=== PATIENT | male | born 1945 | race Caucasian/White ===

== ENCOUNTER 2022-03-21 13:28 | Inpatient (IN) | payer OTHER, MEDICAID ==
[~2022-03-21] VITALS: Ht 170.2 cm; Wt 100.7 kg
[2022-03-21 13:47] VITALS: BP 100/55
[2022-03-21] MEDS ORDERED: FUROSEMIDE 40 MG/4 ML VIAL IVP ONE (15:15)
[2022-03-21 15:25] LABS: BASOPHILS % (AUTO) 0.5 % (0.0-2.0); EOSINOPHILS # (AUTO) 0.2 K/uL (0-0.4); EOSINOPHILS % (AUTO) 5.4 % (0.0-4.0); HEMOGLOBIN 11.1 g/dL (12.0-18.0); LYMPHOCYTES # (AUTO) 0.4 K/uL (2.0-11.5); LYMPHOCYTES % (AUTO) 9.2 % (20.5-51.1); MEAN CORPUSCULAR HEMOGLOBIN 31 pg (27-31); MEAN CORPUSCULAR HGB CONC 34 g/dL (33-37); MEAN CORPUSCULAR VOLUME 91.9 fL (80-94); MONOCYTES # (AUTO) 0.6 K/uL (0.8-1.0); MONOCYTES % (AUTO) 14.8 % (1.7-9.3); NEUTROPHILS # (AUTO) 2.7 K/uL (1.8-7.7); NEUTROPHILS % (AUTO) 70.1 % (42.2-75.2); PLATELET COUNT (AUTO) 126 K/uL (140-450); RED BLOOD CELL COUNT(AUTO) 3.59 MIL/uL (4.20-6.10); RED CELL DISTRIBUTION WIDTH 16.2 % (11.6-13.7); WHITE BLOOD COUNT (AUTO) 3.8 K/uL (4.8-10.8)
[2022-03-21 15:51] LABS: ALBUMIN 2.6 g/dL (3.4-5.0); ANION GAP 17.6 (8-16); ASPARTATE AMINOTRANSFERASE 30 U/L (15-37); CHLORIDE 92 mmol/L (98-107); GLUCOSE 97 mg/dL (74-106); POTASSIUM 4.6 mmol/L (3.5-5.1); SODIUM SERUM 135 mmol/L (136-145); TOTAL BILIRUBIN 0.9 mg/dL (0.0-1.0)
[2022-03-21 15:57] LABS: APPEARANCE,URINE CLEAR (CLEAR); BILIRUBIN,URINE NEGATIVE (NEGATIVE); BLOOD, URINE NEGATIVE (NEGATIVE); COLOR,URINE YELLOW (YELLOW); LEUKOCYTE ESTERASE ,URINE NEGATIVE (NEGATIVE); NITRITE, URINE NEGATIVE (NEGATIVE); PH,URINE 5.5 (5.0-9.0); UGLUCOSE NEGATIVE (NEGATIVE)
[2022-03-21 15:58] LABS: UREA NITROGEN, BLOOD 139 mg/dL (7-18)
[2022-03-21 15:59] LABS: CREATININE 4.4 mg/dL (0.6-1.3)
[2022-03-21] MEDS ORDERED: LORazepam 2 MG/ML VIAL IVP PRN (17:30)
[2022-03-21] MEDS: FUROSEMIDE 40 MG/4 ML VIAL IVP SCH (18:33)
[2022-03-21] MEDS ORDERED: SPIR25TA20 PO (18:37)
[2022-03-21] MEDS ORDERED: [UNRECOGNIZED DRUG - CODE] PO ×2 (18:37)
[2022-03-21] MEDS ORDERED: TAMS0.4C97 PO (18:37)
[2022-03-21] MEDS ORDERED: CARV3.122 PO (18:37)
[2022-03-21] MEDS ORDERED: REN800 PO (18:37)
[2022-03-21 19:45] VITALS: BP 87/65
[2022-03-22] VITALS: BP 84/58
[2022-03-22 04:07] VITALS: BP 86/60
[2022-03-22 07:17] LABS: BASOPHILS % (AUTO) 0.6 % (0.0-2.0); EOSINOPHILS # (AUTO) 0.2 K/uL (0-0.4); EOSINOPHILS % (AUTO) 4.2 % (0.0-4.0); HEMATOCRIT 34.7 % (36-52); HEMOGLOBIN 11.4 g/dL (12.0-18.0); LYMPHOCYTES # (AUTO) 0.4 K/uL (2.0-11.5); LYMPHOCYTES % (AUTO) 9.6 % (20.5-51.1); MEAN CORPUSCULAR HEMOGLOBIN 30 pg (27-31); MEAN CORPUSCULAR HGB CONC 33 g/dL (33-37); MEAN CORPUSCULAR VOLUME 92.3 fL (80-94); MONOCYTES # (AUTO) 0.6 K/uL (0.8-1.0); MONOCYTES % (AUTO) 13.4 % (1.7-9.3); NEUTROPHILS # (AUTO) 3.1 K/uL (1.8-7.7); NEUTROPHILS % (AUTO) 72.2 % (42.2-75.2); PLATELET COUNT (AUTO) 141 K/uL (140-450); RED BLOOD CELL COUNT(AUTO) 3.76 MIL/uL (4.20-6.10); RED CELL DISTRIBUTION WIDTH 16.3 % (11.6-13.7); WHITE BLOOD COUNT (AUTO) 4.2 K/uL (4.8-10.8)
[2022-03-22] MEDS: FUROSEMIDE 40 MG/4 ML VIAL IVP SCH ×2 (08:18→17:19)
[2022-03-22 08:30] VITALS: BP 115/80
[2022-03-22] MEDS ORDERED: POTASSIUM CHLORIDE 10 MEQ TABER PO PRN (08:45)
[2022-03-22] MEDS ORDERED: MAG SULF 2000 MG/WATER PREMIX 50 ML IV PRN (08:45)
[2022-03-22] MEDS ORDERED: SPIRONOLACTONE 25 MG TAB PO SCH (09:00)
[2022-03-22] MEDS ORDERED: BUMETANIDE 1 MG TAB PO SCH (09:00)
[2022-03-22] MEDS ORDERED: SEVELAMER HCL 800 MG PO SCH (09:00)
[2022-03-22] MEDS: carvediloL 3.125 MG TAB PO SCH ×2 (09:33→20:43)
[2022-03-22] MEDS: TAMSULOSIN 0.4 MG CAP PO SCH (09:58)
[2022-03-22] MEDS ORDERED: SEVELAMER CARBONATE 800 MG TAB PO SCH (12:00)
[2022-03-22 12:05] VITALS: BP 125/82
[2022-03-22] MEDS: SEVELAMER CARBONATE 800 MG TAB PO SCH ×2 (12:07→17:21)
[2022-03-22 12:48] LABS: ANION GAP 21.5 (8-16); CARBON DIOXIDE 28.2 mmol/L (21-32); CHLORIDE 92 mmol/L (98-107); GLUCOSE 92 mg/dL (74-106); POTASSIUM 4.7 mmol/L (3.5-5.1); SODIUM SERUM 137 mmol/L (136-145)
[2022-03-22 14:12] LABS: CREATININE 4.4 mg/dL (0.6-1.3); UREA NITROGEN, BLOOD 149 mg/dL (7-18)
[2022-03-22 16:30] VITALS: BP 106/56
[2022-03-22 20:00] VITALS: BP 106/56
[2022-03-23] VITALS: BP 93/62
[2022-03-23 04:00] VITALS: BP 95/60
[2022-03-23 07:06] LABS: BASOPHILS % (AUTO) 0.7 % (0.0-2.0); EOSINOPHILS # (AUTO) 0.2 K/uL (0-0.4); EOSINOPHILS % (AUTO) 3.6 % (0.0-4.0); HEMATOCRIT 33.4 % (36-52); HEMOGLOBIN 10.9 g/dL (12.0-18.0); LYMPHOCYTES # (AUTO) 0.4 K/uL (2.0-11.5); LYMPHOCYTES % (AUTO) 9.4 % (20.5-51.1); MEAN CORPUSCULAR HEMOGLOBIN 30 pg (27-31); MEAN CORPUSCULAR HGB CONC 33 g/dL (33-37); MEAN CORPUSCULAR VOLUME 92.2 fL (80-94); MONOCYTES # (AUTO) 0.5 K/uL (0.8-1.0); MONOCYTES % (AUTO) 12.7 % (1.7-9.3); NEUTROPHILS # (AUTO) 3.2 K/uL (1.8-7.7); NEUTROPHILS % (AUTO) 73.6 % (42.2-75.2); PLATELET COUNT (AUTO) 131 K/uL (140-450); RED BLOOD CELL COUNT(AUTO) 3.62 MIL/uL (4.20-6.10); RED CELL DISTRIBUTION WIDTH 16.3 % (11.6-13.7); WHITE BLOOD COUNT (AUTO) 4.3 K/uL (4.8-10.8)
[2022-03-23 07:21] LABS: CARBON DIOXIDE 30.4 mmol/L (21-32); CHLORIDE 98 mmol/L (98-107); CREATININE 3.1 mg/dL (0.6-1.3); GLUCOSE 100 mg/dL (74-106); POTASSIUM 4.4 mmol/L (3.5-5.1); SODIUM SERUM 139 mmol/L (136-145)
[2022-03-23 07:26] LABS: MAGNESIUM 2.9 mg/dL (1.8-2.4); PHOSPHORUS 5.3 mg/dL (2.5-4.9)
[2022-03-23 09:12] VITALS: BP 95/55
[2022-03-23] MEDS: FUROSEMIDE 40 MG/4 ML VIAL IVP SCH ×2 (09:23→13:59)
[2022-03-23 09:24] LABS: UREA NITROGEN, BLOOD 91 mg/dL (7-18)
[2022-03-23] MEDS: carvediloL 3.125 MG TAB PO SCH ×2 (09:24→21:00)
[2022-03-23] MEDS: TAMSULOSIN 0.4 MG CAP PO SCH (09:24)
[2022-03-23] MEDS: SEVELAMER CARBONATE 800 MG TAB PO SCH ×3 (09:24→16:54)
[2022-03-23 11:31] VITALS: BP 98/59
[2022-03-23 15:59] VITALS: BP 90/63
[2022-03-23 20:00] VITALS: BP 96/58
[2022-03-24] VITALS: BP 96/58
[2022-03-24 04:00] VITALS: BP 93/67
[2022-03-24 08:00] VITALS: BP 92/64
[2022-03-24 08:29] LABS: ANION GAP 14.2 (8-16); CARBON DIOXIDE 26.4 mmol/L (21-32); CHLORIDE 99 mmol/L (98-107); CREATININE 2.5 mg/dL (0.6-1.3); GLUCOSE 84 mg/dL (74-106); POTASSIUM 4.6 mmol/L (3.5-5.1); SODIUM SERUM 135 mmol/L (136-145)
[2022-03-24 08:31] LABS: BASOPHILS % (AUTO) 0.8 % (0.0-2.0); EOSINOPHILS # (AUTO) 0.2 K/uL (0-0.4); EOSINOPHILS % (AUTO) 4.7 % (0.0-4.0); HEMATOCRIT 33.8 % (36-52); HEMOGLOBIN 11.2 g/dL (12.0-18.0); LYMPHOCYTES # (AUTO) 0.6 K/uL (2.0-11.5); LYMPHOCYTES % (AUTO) 12.2 % (20.5-51.1); MEAN CORPUSCULAR HEMOGLOBIN 31 pg (27-31); MEAN CORPUSCULAR HGB CONC 33 g/dL (33-37); MEAN CORPUSCULAR VOLUME 93.5 fL (80-94); MONOCYTES # (AUTO) 0.6 K/uL (0.8-1.0); MONOCYTES % (AUTO) 12.5 % (1.7-9.3); NEUTROPHILS # (AUTO) 3.2 K/uL (1.8-7.7); NEUTROPHILS % (AUTO) 69.8 % (42.2-75.2); PLATELET COUNT (AUTO) 125 K/uL (140-450); RED BLOOD CELL COUNT(AUTO) 3.61 MIL/uL (4.20-6.10); RED CELL DISTRIBUTION WIDTH 16.3 % (11.6-13.7); WHITE BLOOD COUNT (AUTO) 4.6 K/uL (4.8-10.8)
[2022-03-24 08:35] LABS: UREA NITROGEN, BLOOD 64 mg/dL (7-18)
[2022-03-24 08:37] LABS: MAGNESIUM 2.6 mg/dL (1.8-2.4); PHOSPHORUS 4.6 mg/dL (2.5-4.9)
[2022-03-24] MEDS: FUROSEMIDE 40 MG/4 ML VIAL IVP SCH (09:51)
[2022-03-24] MEDS: TAMSULOSIN 0.4 MG CAP PO SCH (09:54)
[2022-03-24] MEDS: carvediloL 3.125 MG TAB PO SCH ×2 (09:55→21:00)
[2022-03-24] MEDS: SEVELAMER CARBONATE 800 MG TAB PO SCH ×3 (10:00→17:57)
[2022-03-24 12:08] LABS: HEPATITIS A ANTIBODY IGM Negative (Negative); HEPATITIS B SURFACE ANTIBODY Reactive (.); HEPATITIS B SURFACE ANTIGEN Negative (Negative)
[2022-03-24 16:00] VITALS: BP 93/65
[2022-03-24 17:00] LABS: HEPATITIS B CORE AB TOTAL POSITIVE (NEGATIVE)
[2022-03-25 04:00] VITALS: BP 91/60
[2022-03-25 07:22] LABS: BASOPHILS % (AUTO) 0.9 % (0.0-2.0); EOSINOPHILS # (AUTO) 0.2 K/uL (0-0.4); EOSINOPHILS % (AUTO) 4.5 % (0.0-4.0); HEMATOCRIT 33.9 % (36-52); HEMOGLOBIN 11.1 g/dL (12.0-18.0); LYMPHOCYTES # (AUTO) 0.6 K/uL (2.0-11.5); LYMPHOCYTES % (AUTO) 12.5 % (20.5-51.1); MEAN CORPUSCULAR HEMOGLOBIN 31 pg (27-31); MEAN CORPUSCULAR HGB CONC 33 g/dL (33-37); MEAN CORPUSCULAR VOLUME 93.8 fL (80-94); MONOCYTES # (AUTO) 0.5 K/uL (0.8-1.0); MONOCYTES % (AUTO) 10.3 % (1.7-9.3); NEUTROPHILS # (AUTO) 3.3 K/uL (1.8-7.7); NEUTROPHILS % (AUTO) 71.8 % (42.2-75.2); PLATELET COUNT (AUTO) 140 K/uL (140-450); RED BLOOD CELL COUNT(AUTO) 3.61 MIL/uL (4.20-6.10); RED CELL DISTRIBUTION WIDTH 16.3 % (11.6-13.7); WHITE BLOOD COUNT (AUTO) 4.6 K/uL (4.8-10.8)
[2022-03-25 07:48] LABS: ANION GAP 10.8 (8-16); CARBON DIOXIDE 29.4 mmol/L (21-32); CHLORIDE 100 mmol/L (98-107); CREATININE 2.9 mg/dL (0.6-1.3); GLUCOSE 89 mg/dL (74-106); POTASSIUM 5.2 mmol/L (3.5-5.1); SODIUM SERUM 135 mmol/L (136-145)
[2022-03-25 08:00] VITALS: BP 94/62
[2022-03-25] MEDS: SEVELAMER CARBONATE 800 MG TAB PO SCH ×4 (08:00→17:51)
[2022-03-25 08:03] LABS: MAGNESIUM 2.8 mg/dL (1.8-2.4); PHOSPHORUS 4.5 mg/dL (2.5-4.9)
[2022-03-25 08:04] LABS: UREA NITROGEN, BLOOD 79 mg/dL (7-18)
[2022-03-25] MEDS: FUROSEMIDE 40 MG/4 ML VIAL IVP SCH (09:00)
[2022-03-25] MEDS: carvediloL 3.125 MG TAB PO SCH ×2 (09:00→21:00)
[2022-03-25] MEDS: TAMSULOSIN 0.4 MG CAP PO SCH (13:11)
[2022-03-25 16:00] VITALS: BP 94/62
[2022-03-26] VITALS: BP 95/60
[2022-03-26] MEDS: ACETAMINOPHEN 325 MG TAB PO PRN (07:21)
[2022-03-26 07:28] LABS: BASOPHILS % (AUTO) 0.7 % (0.0-2.0); EOSINOPHILS # (AUTO) 0.1 K/uL (0-0.4); EOSINOPHILS % (AUTO) 3.1 % (0.0-4.0); HEMATOCRIT 34.8 % (36-52); HEMOGLOBIN 11.3 g/dL (12.0-18.0); LYMPHOCYTES # (AUTO) 0.4 K/uL (2.0-11.5); LYMPHOCYTES % (AUTO) 8.7 % (20.5-51.1); MEAN CORPUSCULAR HEMOGLOBIN 31 pg (27-31); MEAN CORPUSCULAR HGB CONC 33 g/dL (33-37); MEAN CORPUSCULAR VOLUME 93.8 fL (80-94); MONOCYTES # (AUTO) 0.5 K/uL (0.8-1.0); MONOCYTES % (AUTO) 10.8 % (1.7-9.3); NEUTROPHILS # (AUTO) 3.4 K/uL (1.8-7.7); NEUTROPHILS % (AUTO) 76.7 % (42.2-75.2); PLATELET COUNT (AUTO) 122 K/uL (140-450); RED BLOOD CELL COUNT(AUTO) 3.72 MIL/uL (4.20-6.10); RED CELL DISTRIBUTION WIDTH 16.2 % (11.6-13.7); WHITE BLOOD COUNT (AUTO) 4.4 K/uL (4.8-10.8)
[2022-03-26 08:00] VITALS: BP 94/64
[2022-03-26] MEDS: SEVELAMER CARBONATE 800 MG TAB PO SCH ×3 (08:00→17:33)
[2022-03-26 08:19] LABS: ANION GAP 13.2 (8-16); CARBON DIOXIDE 25.8 mmol/L (21-32); CHLORIDE 104 mmol/L (98-107); CREATININE 2.6 mg/dL (0.6-1.3); GLUCOSE 87 mg/dL (74-106); SODIUM SERUM 138 mmol/L (136-145)
[2022-03-26 08:45] LABS: UREA NITROGEN, BLOOD 61 mg/dL (7-18)
[2022-03-26 08:56] LABS: MAGNESIUM 2.7 mg/dL (1.8-2.4); PHOSPHORUS 3.6 mg/dL (2.5-4.9)
[2022-03-26] MEDS: carvediloL 3.125 MG TAB PO SCH ×2 (09:24→20:38)
[2022-03-26] MEDS: TAMSULOSIN 0.4 MG CAP PO SCH (09:24)
[2022-03-26] MEDS: FUROSEMIDE 40 MG/4 ML VIAL IVP SCH (09:24)
[2022-03-26 16:00] VITALS: BP 90/60
[2022-03-26 20:00] VITALS: BP 91/68
[2022-03-26] MEDS ORDERED: ONDANSETRON 4 MG/2 ML VIAL IVP PRN (20:10)
[2022-03-26] MEDS ORDERED: ONDANSETRON 4 MG/2 ML VIAL ONE (20:15)
[2022-03-26] MEDS ORDERED: POLYETHYLENE GLYCOL 17 GM/PKT ONE (20:16)
[2022-03-26] MEDS ORDERED: POLYETHYLENE GLYCOL 17 GM/PKT PO SCH (20:26)
[2022-03-27] VITALS: BP 92/70
[2022-03-27 08:00] VITALS: BP 92/70
[2022-03-27] MEDS: SEVELAMER CARBONATE 800 MG TAB PO SCH ×3 (08:00→17:23)
[2022-03-27] MEDS: TAMSULOSIN 0.4 MG CAP PO SCH (08:30)
[2022-03-27 08:53] LABS: BASOPHILS % (AUTO) 0.9 % (0.0-2.0); EOSINOPHILS # (AUTO) 0.2 K/uL (0-0.4); EOSINOPHILS % (AUTO) 5.1 % (0.0-4.0); HEMATOCRIT 34.4 % (36-52); HEMOGLOBIN 11.2 g/dL (12.0-18.0); LYMPHOCYTES # (AUTO) 0.6 K/uL (2.0-11.5); MEAN CORPUSCULAR HEMOGLOBIN 31 pg (27-31); MEAN CORPUSCULAR HGB CONC 33 g/dL (33-37); MEAN CORPUSCULAR VOLUME 93.6 fL (80-94); MONOCYTES # (AUTO) 0.6 K/uL (0.8-1.0); MONOCYTES % (AUTO) 13.7 % (1.7-9.3); NEUTROPHILS # (AUTO) 2.8 K/uL (1.8-7.7); NEUTROPHILS % (AUTO) 65.3 % (42.2-75.2); PLATELET COUNT (AUTO) 148 K/uL (140-450); RED BLOOD CELL COUNT(AUTO) 3.68 MIL/uL (4.20-6.10); RED CELL DISTRIBUTION WIDTH 16.4 % (11.6-13.7); WHITE BLOOD COUNT (AUTO) 4.3 K/uL (4.8-10.8)
[2022-03-27] MEDS: POLYETHYLENE GLYCOL 17 GM/PKT PO SCH (09:00)
[2022-03-27] MEDS: carvediloL 3.125 MG TAB PO SCH ×2 (09:00→22:01)
[2022-03-27] MEDS: FUROSEMIDE 40 MG/4 ML VIAL IVP SCH (09:00)
[2022-03-27 09:08] LABS: ANION GAP 13.9 (8-16); CARBON DIOXIDE 28.4 mmol/L (21-32); CHLORIDE 102 mmol/L (98-107); CREATININE 2.9 mg/dL (0.6-1.3); GLUCOSE 97 mg/dL (74-106); POTASSIUM 5.3 mmol/L (3.5-5.1); SODIUM SERUM 139 mmol/L (136-145)
[2022-03-27 09:12] LABS: MAGNESIUM 2.7 mg/dL (1.8-2.4); PHOSPHORUS 4.3 mg/dL (2.5-4.9)
[2022-03-27 10:13] LABS: UREA NITROGEN, BLOOD 68 mg/dL (7-18)
[2022-03-27] MEDS ORDERED: SODIUM ZIRCONIUM CYCLOSILICATE 10 GM POWD.PACK PO ONE (13:30)
[2022-03-27 17:19] VITALS: BP 100/65
[2022-03-28] VITALS: BP 106/60
[2022-03-28] MEDS: ACETAMINOPHEN 325 MG TAB PO PRN (01:18)
[2022-03-28 08:00] VITALS: BP 94/55
[2022-03-28] MEDS: SEVELAMER CARBONATE 800 MG TAB PO SCH ×3 (08:23→16:46)
[2022-03-28] MEDS: TAMSULOSIN 0.4 MG CAP PO SCH (08:23)
[2022-03-28] MEDS: FUROSEMIDE 40 MG/4 ML VIAL IVP SCH (08:28)
[2022-03-28] MEDS: carvediloL 3.125 MG TAB PO SCH (08:30)
[2022-03-28] MEDS: POLYETHYLENE GLYCOL 17 GM/PKT PO SCH (08:31)
[2022-03-28 13:00] LABS: ANION GAP 12.7 (8-16); CARBON DIOXIDE 27.8 mmol/L (21-32); CHLORIDE 100 mmol/L (98-107); CREATININE 2.7 mg/dL (0.6-1.3); GLUCOSE 114 mg/dL (74-106); POTASSIUM 4.5 mmol/L (3.5-5.1); SODIUM SERUM 136 mmol/L (136-145); UREA NITROGEN, BLOOD 53 mg/dL (7-18)
[2022-03-28 13:01] LABS: BASOPHILS % (AUTO) 0.4 % (0.0-2.0); EOSINOPHILS # (AUTO) 0.1 K/uL (0-0.4); EOSINOPHILS % (AUTO) 1.4 % (0.0-4.0); HEMATOCRIT 31.9 % (36-52); HEMOGLOBIN 10.6 g/dL (12.0-18.0); LYMPHOCYTES # (AUTO) 0.3 K/uL (2.0-11.5); LYMPHOCYTES % (AUTO) 7.5 % (20.5-51.1); MEAN CORPUSCULAR HEMOGLOBIN 31 pg (27-31); MEAN CORPUSCULAR HGB CONC 33 g/dL (33-37); MEAN CORPUSCULAR VOLUME 92.4 fL (80-94); MONOCYTES # (AUTO) 0.5 K/uL (0.8-1.0); MONOCYTES % (AUTO) 13.2 % (1.7-9.3); NEUTROPHILS # (AUTO) 3.1 K/uL (1.8-7.7); NEUTROPHILS % (AUTO) 77.5 % (42.2-75.2); PLATELET COUNT (AUTO) 104 K/uL (140-450); RED BLOOD CELL COUNT(AUTO) 3.45 MIL/uL (4.20-6.10)
[2022-03-28 16:00] VITALS: BP 95/57
[2022-03-28 20:00] VITALS: BP 93/70
[2022-03-29 04:00] VITALS: BP 97/70
[2022-03-29 06:47] LABS: BASOPHILS % (AUTO) 0.9 % (0.0-2.0); EOSINOPHILS # (AUTO) 0.1 K/uL (0-0.4); EOSINOPHILS % (AUTO) 4.1 % (0.0-4.0); HEMATOCRIT 33.3 % (36-52); HEMOGLOBIN 10.9 g/dL (12.0-18.0); LYMPHOCYTES # (AUTO) 0.6 K/uL (2.0-11.5); LYMPHOCYTES % (AUTO) 18.7 % (20.5-51.1); MEAN CORPUSCULAR HEMOGLOBIN 31 pg (27-31); MEAN CORPUSCULAR HGB CONC 33 g/dL (33-37); MEAN CORPUSCULAR VOLUME 93.1 fL (80-94); MONOCYTES # (AUTO) 0.6 K/uL (0.8-1.0); MONOCYTES % (AUTO) 21.6 % (1.7-9.3); NEUTROPHILS # (AUTO) 1.6 K/uL (1.8-7.7); NEUTROPHILS % (AUTO) 54.7 % (42.2-75.2); PLATELET COUNT (AUTO) 113 K/uL (140-450); RED BLOOD CELL COUNT(AUTO) 3.57 MIL/uL (4.20-6.10); RED CELL DISTRIBUTION WIDTH 16.7 % (11.6-13.7)
[2022-03-29 07:48] LABS: CARBON DIOXIDE 25.8 mmol/L (21-32); CHLORIDE 103 mmol/L (98-107); CREATININE 2.8 mg/dL (0.6-1.3); GLUCOSE 79 mg/dL (74-106); POTASSIUM 4.8 mmol/L (3.5-5.1); SODIUM SERUM 139 mmol/L (136-145); UREA NITROGEN, BLOOD 59 mg/dL (7-18)
[2022-03-29 08:00] VITALS: BP 98/71
[2022-03-29] MEDS: POLYETHYLENE GLYCOL 17 GM/PKT PO SCH ×2 (09:00→12:00)
[2022-03-29] MEDS: SEVELAMER CARBONATE 800 MG TAB PO SCH ×3 (09:13→17:50)
[2022-03-29] MEDS ORDERED: PIPERACILLIN/TAZOBACTAM 2.25 GM in DEXTROSE 5% 50 ML IV SCH (13:00)
[2022-03-29 16:00] VITALS: BP 103/73
[2022-03-29 20:00] VITALS: BP 104/64
[2022-03-30 04:00] VITALS: BP 108/75
[2022-03-30 07:28] LABS: BASOPHILS % (AUTO) 0.7 % (0.0-2.0); EOSINOPHILS # (AUTO) 0.2 K/uL (0-0.4); EOSINOPHILS % (AUTO) 4.1 % (0.0-4.0); HEMATOCRIT 34.6 % (36-52); HEMOGLOBIN 11.4 g/dL (12.0-18.0); LYMPHOCYTES # (AUTO) 0.6 K/uL (2.0-11.5); LYMPHOCYTES % (AUTO) 13.3 % (20.5-51.1); MEAN CORPUSCULAR HEMOGLOBIN 30 pg (27-31); MEAN CORPUSCULAR HGB CONC 33 g/dL (33-37); MEAN CORPUSCULAR VOLUME 92.4 fL (80-94); MONOCYTES # (AUTO) 0.7 K/uL (0.8-1.0); MONOCYTES % (AUTO) 16.1 % (1.7-9.3); NEUTROPHILS % (AUTO) 65.8 % (42.2-75.2); PLATELET COUNT (AUTO) 136 K/uL (140-450); RED BLOOD CELL COUNT(AUTO) 3.75 MIL/uL (4.20-6.10); RED CELL DISTRIBUTION WIDTH 16.7 % (11.6-13.7); WHITE BLOOD COUNT (AUTO) 4.5 K/uL (4.8-10.8)
[2022-03-30 08:00] VITALS: BP 113/69
[2022-03-30] MEDS: SEVELAMER CARBONATE 800 MG TAB PO SCH ×3 (09:00→17:00)
[2022-03-30 09:47] LABS: ANION GAP 15.7 (8-16); CARBON DIOXIDE 25.3 mmol/L (21-32); CHLORIDE 102 mmol/L (98-107); CREATININE 2.9 mg/dL (0.6-1.3); GLUCOSE 91 mg/dL (74-106); SODIUM SERUM 138 mmol/L (136-145)
[2022-03-30 09:49] LABS: UREA NITROGEN, BLOOD 67 mg/dL (7-18)
[2022-03-30 16:00] VITALS: BP 94/58
[2022-03-30 20:00] VITALS: BP 84/46
[2022-03-30] MEDS: MIDODRINE 5 MG TAB PO PRN (20:59)
[2022-03-31] MEDS ORDERED: NACL 0.9% 500 ML IV SCH (01:55)
[2022-03-31 04:00] VITALS: BP 92/58
[2022-03-31 07:42] LABS: HEMATOCRIT 35.5 % (36-52); HEMOGLOBIN 11.8 g/dL (12.0-18.0); MEAN CORPUSCULAR HEMOGLOBIN 31 pg (27-31); MEAN CORPUSCULAR HGB CONC 33 g/dL (33-37); MEAN CORPUSCULAR VOLUME 92.7 fL (80-94); PLATELET COUNT (AUTO) 109 K/uL (140-450); RED BLOOD CELL COUNT(AUTO) 3.83 MIL/uL (4.20-6.10); RED CELL DISTRIBUTION WIDTH 17.1 % (11.6-13.7); WHITE BLOOD COUNT (AUTO) 9.7 K/uL (4.8-10.8)
[2022-03-31 08:00] VITALS: BP 96/57
[2022-03-31 08:17] LABS: ANION GAP 15.3 (8-16); CARBON DIOXIDE 25.8 mmol/L (21-32); CHLORIDE 101 mmol/L (98-107); GLUCOSE 80 mg/dL (74-106); POTASSIUM 5.1 mmol/L (3.5-5.1); SODIUM SERUM 137 mmol/L (136-145); UREA NITROGEN, BLOOD 48 mg/dL (7-18)
[2022-03-31] MEDS: SEVELAMER CARBONATE 800 MG TAB PO SCH ×2 (08:31→11:15)
[2022-03-31] MEDS: POLYETHYLENE GLYCOL 17 GM/PKT PO SCH (08:32)
[2022-03-31 08:54] LABS: BASOPHILS % (MANUAL) 0 % (0-2); BLASTS, MANUAL % 0 % (0-0); EOSINOPHILS % (MANUAL) 0 % (0-4); LYMPHOCYTES % (MANUAL) 5 % (20-46); METAMYELOCYTES % 0 % (0-0); MONOCYTES % (MANUAL) 10 % (5-12); MYELOCYTES % 0 % (0-0); OTHER CELLS,MANUAL % 0 (0-0); PROMYELOCYTES % 0 % (0-0)
[2022-03-31 08:55] LABS: BUFFY COAT SMEAR PREP N
[2022-03-31 11:20] LABS: PROTHROMBIN TIME 11.6 secs (10.8-13.4)
[2022-03-31 16:00] VITALS: BP 111/65
[2022-04-01] VITALS: BP 91/62
[2022-04-01 08:00] VITALS: BP 92/64
[2022-04-01 08:15] LABS: BASOPHILS % (AUTO) 0.7 % (0.0-2.0); EOSINOPHILS # (AUTO) 0.1 K/uL (0-0.4); EOSINOPHILS % (AUTO) 2.6 % (0.0-4.0); HEMATOCRIT 32.5 % (36-52); HEMOGLOBIN 10.9 g/dL (12.0-18.0); LYMPHOCYTES # (AUTO) 0.6 K/uL (2.0-11.5); MEAN CORPUSCULAR HEMOGLOBIN 31 pg (27-31); MEAN CORPUSCULAR HGB CONC 34 g/dL (33-37); MEAN CORPUSCULAR VOLUME 92.7 fL (80-94); NEUTROPHILS # (AUTO) 3.4 K/uL (1.8-7.7); NEUTROPHILS % (AUTO) 66.7 % (42.2-75.2); PLATELET COUNT (AUTO) 114 K/uL (140-450); WHITE BLOOD COUNT (AUTO) 5.1 K/uL (4.8-10.8)
[2022-04-01] MEDS: POLYETHYLENE GLYCOL 17 GM/PKT PO SCH (08:37)
[2022-04-01 08:59] LABS: ANION GAP 15.7 (8-16); CARBON DIOXIDE 25.9 mmol/L (21-32); CHLORIDE 103 mmol/L (98-107); CREATININE 3.1 mg/dL (0.6-1.3); GLUCOSE 86 mg/dL (74-106); POTASSIUM 4.6 mmol/L (3.5-5.1); SODIUM SERUM 140 mmol/L (136-145); UREA NITROGEN, BLOOD 56 mg/dL (7-18)
[2022-04-01] MEDS: MIDODRINE 5 MG TAB PO PRN (09:28)
[2022-04-01 11:00] VITALS: BP 100/71
[2022-04-01] MEDS ORDERED: BUPIVACAINE-MPF 0.25% 30 ML VIAL INJ ONE (14:36)
[2022-04-01] MEDS ORDERED: LIDOCAINE 1% 500 MG/50 ML VIAL ONE (14:36)
[2022-04-01] MEDS ORDERED: HYDROcodone/APAP 5/325 MG 1 TAB TAB PO PRN (16:55)
[2022-04-01] MEDS ORDERED: ONDANSETRON 4 MG/2 ML VIAL IVP PRN (17:15)
[2022-04-01] MEDS ORDERED: LABETALOL 20 MG/4 ML VIAL IVP PRN (17:16)
[2022-04-01] MEDS ORDERED: hydrALAZINE 20 MG/ML VIAL IVP PRN (17:16)
[2022-04-01 17:35] VITALS: BP 105/52
[2022-04-01] MEDS ORDERED: REN800 PO (23:20)
[2022-04-01] MEDS ORDERED: CARV3.122 PO (23:20)
[2022-04-01] MEDS ORDERED: TAMS0.4C97 PO (23:21)
== END 2022-04-01 21:10 | disposition home or self-care (01) | DRG 673 ==
LOC: MED 13:28 → MTU 17:34
PROVIDERS: ADMIT Family Medicine; ATTEND Family Medicine
PROC: 5A1D70Z Performance of Urinary Filtration, Intermittent, Less than 6 Hours Per Day (ICD-10-PCS; principal; 2022-03-22)
PROC: 0JH63XZ Insertion of Tunneled Vascular Access Device into Chest Subcutaneous Tissue and Fascia, Percutaneous Approach (ICD-10-PCS; 2022-03-22)
PROC: 02HV33Z Insertion of Infusion Device into Superior Vena Cava, Percutaneous Approach (ICD-10-PCS; 2022-03-22)
PROC: B548ZZA Ultrasonography of Superior Vena Cava, Guidance (ICD-10-PCS; 2022-03-22)
PROC: 5A1D70Z Performance of Urinary Filtration, Intermittent, Less than 6 Hours Per Day (ICD-10-PCS; 2022-03-23)
PROC: 5A1D70Z Performance of Urinary Filtration, Intermittent, Less than 6 Hours Per Day (ICD-10-PCS; 2022-03-25)
PROC: 5A1D70Z Performance of Urinary Filtration, Intermittent, Less than 6 Hours Per Day (ICD-10-PCS; 2022-03-27)
PROC: 5A1D70Z Performance of Urinary Filtration, Intermittent, Less than 6 Hours Per Day (ICD-10-PCS; 2022-03-30)
PROC: 5A1D70Z Performance of Urinary Filtration, Intermittent, Less than 6 Hours Per Day (ICD-10-PCS; 2022-04-01)
PROC: 0JPT3XZ Removal of Tunneled Vascular Access Device from Trunk Subcutaneous Tissue and Fascia, Percutaneous Approach (ICD-10-PCS; 2022-04-01)
PROC: 02PYX3Z Removal of Infusion Device from Great Vessel, External Approach (ICD-10-PCS; 2022-04-01)
PROC: 0JH63XZ Insertion of Tunneled Vascular Access Device into Chest Subcutaneous Tissue and Fascia, Percutaneous Approach (ICD-10-PCS; 2022-04-01)
PROC: 02H633Z Insertion of Infusion Device into Right Atrium, Percutaneous Approach (ICD-10-PCS; 2022-04-01)
PROC: B5181ZA Fluoroscopy of Superior Vena Cava using Low Osmolar Contrast, Guidance (ICD-10-PCS; 2022-04-01)
DX: N17.0 Acute kidney failure with tubular necrosis (principal); E43 Unspecified severe protein-calorie malnutrition; I50.23 Acute on chronic systolic (congestive) heart failure; I13.2 Hypertensive heart and chronic kidney disease with heart failure and with stage 5 chronic kidney disease, or end stage renal disease; I42.0 Dilated cardiomyopathy; N18.6 End stage renal disease; E83.39 Other disorders of phosphorus metabolism; Z20.822 Contact with and (suspected) exposure to COVID-19; I48.91 Unspecified atrial fibrillation; N40.0 Benign prostatic hyperplasia without lower urinary tract symptoms; N28.1 Cyst of kidney, acquired; D63.8 Anemia in other chronic diseases classified elsewhere; Z87.891 Personal history of nicotine dependence; Z95.810 Presence of automatic (implantable) cardiac defibrillator; Z68.34 Body mass index [BMI] 34.0-34.9, adult
CPT/HCPCS: 36415; 71045; 76770; 80048; 80053; 81003; 83735; 83880; 84100; 84484; 85025; 85610; 85730; 86704; 86706; 86708; 86709; 86803; 87081; 87340; 93005; 97110; 97116; 97163-GP; 97530; 99285; C1750; J1644; J1940; J2001; J2405; J3490; Q0092

== ENCOUNTER 2022-05-05 21:32 | Inpatient (IN) | payer OTHER, MEDICAID ==
[~2022-05-05] VITALS: Ht 170.2 cm; Wt 113.4 kg
[~2022-05-05 21:32] MED LIST: CARV3.122 PO; REN800 PO; TAMS0.4C97 PO
[2022-05-05 21:58] VITALS: BP 133/91
--- NOTE | 2022-05-05 22:05 | NUR ---
AMBULATED TO BED 4 FROM TRIAGE, ACCOMPANIED BY DAUGHTER WHO IS PROVIDING HISTORY. DAUGHTER INFORMED SHE WILL NEED TO RETURN TO [facility]
[2022-05-05] MEDS ORDERED: ONDANSETRON 4 MG/2 ML VIAL IVP ONE (22:25)
[2022-05-05] MEDS ORDERED: MORPHINE SULFATE 4 MG/ML SYR IVP ONE (22:25)
[2022-05-05 22:43] LABS: BASOPHILS % (AUTO) 0.9 % (0.0-2.0); EOSINOPHILS # (AUTO) 0.4 K/uL (0-0.4); EOSINOPHILS % (AUTO) 7.1 % (0.0-4.0); HEMATOCRIT 32.4 % (36-52); HEMOGLOBIN 10.7 g/dL (12.0-18.0); LYMPHOCYTES # (AUTO) 0.5 K/uL (2.0-11.5); LYMPHOCYTES % (AUTO) 10.8 % (20.5-51.1); MEAN CORPUSCULAR HEMOGLOBIN 30 pg (27-31); MEAN CORPUSCULAR HGB CONC 33 g/dL (33-37); MEAN CORPUSCULAR VOLUME 92.1 fL (80-94); MONOCYTES # (AUTO) 0.5 K/uL (0.8-1.0); MONOCYTES % (AUTO) 10.6 % (1.7-9.3); NEUTROPHILS # (AUTO) 3.5 K/uL (1.8-7.7); NEUTROPHILS % (AUTO) 70.6 % (42.2-75.2); PLATELET COUNT (AUTO) 83 K/uL (140-450); RED BLOOD CELL COUNT(AUTO) 3.52 MIL/uL (4.20-6.10); RED CELL DISTRIBUTION WIDTH 16.1 % (11.6-13.7)
--- NOTE | 2022-05-05 22:50 | NUR ---
Patient lying in bed, A/Ox4, chest rise and fall symmetrical, no s/s of distress, on monitor.
[2022-05-05 23:16] LABS: ALBUMIN 3.5 g/dL (3.4-5.0); ANION GAP 14.3 (8-16); ASPARTATE AMINOTRANSFERASE 28 U/L (15-37); CARBON DIOXIDE 29.4 mmol/L (21-32); CHLORIDE 105 mmol/L (98-107); CREATININE 2.4 mg/dL (0.6-1.3); GLUCOSE 113 mg/dL (74-106); LIPASE 258 U/L (73-393); POTASSIUM 4.7 mmol/L (3.5-5.1); SODIUM SERUM 144 mmol/L (136-145); UREA NITROGEN, BLOOD 39 mg/dL (7-18)
[2022-05-06 00:32] LABS: APPEARANCE,URINE CLEAR (CLEAR); BILIRUBIN,URINE NEGATIVE (NEGATIVE); BLOOD, URINE TRACE-I (NEGATIVE); COLOR,URINE YELLOW (YELLOW); LEUKOCYTE ESTERASE ,URINE TRACE (NEGATIVE); NITRITE, URINE NEGATIVE (NEGATIVE); UGLUCOSE NEGATIVE (NEGATIVE)
[2022-05-06 00:38] LABS: RBC,URINE 0-5 /HPF (0-5); URINE AMORPHOUS URATE 1+ /HPF (None Seen)
--- NOTE | 2022-05-06 00:45 | NUR ---
Patient lying in bed, A/Ox4, chest rise and fall symmetrical, no s/s of distress, on monitor.
[2022-05-06] MEDS ORDERED: MORPHINE SULFATE 4 MG/ML SYR IVP ONE ×2 (01:00→05:15)
[2022-05-06] MEDS ORDERED: DICYCLOMINE 10 MG CAP PO ONE (01:00)
[2022-05-06] MEDS ORDERED: cefTRIAXone 1,000 MG VIAL ONE (01:28)
--- NOTE | 2022-05-06 03:32 | NUR ---
Patient lying in bed, A/Ox4, chest rise and fall symmetrical, no s/s of distress, on monitor.
--- NOTE | 2022-05-06 03:32 | NUR ---
NG tube inserted via right nares. Chest Xray completed and Dr. Haro verbalized "NG tube is in place, strat low intermittent suction."
--- NOTE | 2022-05-06 03:37 | NUR ---
300mL out, Dr. Haro aware.
--- NOTE | 2022-05-06 05:02 | NUR ---
Patient lying in bed, A/Ox4, chest rise and fall symmetrical, no s/s of distress, on monitor.
[2022-05-06] MEDS ORDERED: NACL 0.9% 500 ML IV ONE (05:15)
--- NOTE | 2022-05-06 05:29 | NUR ---
Patient lying in bed, A/Ox4, chest rise and fall symmetrical, no s/s of distress, on monitor.
--- NOTE | 2022-05-06 06:19 | NUR ---
Isacc cast in [facility] - 05/06/22 at 0621 by [id number] Medication reconciliation completed with help of interpreter translator, Latrell Cavazos ID number [id number].
--- NOTE | 2022-05-06 06:22 | NUR ---
Medication reconciliation completed with patient's daughter/emergency contact, Usha Rosa, with consent by patient.
[2022-05-06] MEDS ORDERED: MIRABULK PO (06:25)
[2022-05-06] MEDS ORDERED: DOCU-299 PO (06:25)
--- NOTE | 2022-05-06 06:37 | NUR ---
Patient lying in bed, A/Ox4, chest rise and fall symmetrical, no s/s of distress, on monitor.
--- NOTE | 2022-05-06 06:59 | NUR ---
Low intermittent suction continued per Dr. Garcia verbal orders, 700 mL out total.
--- NOTE | 2022-05-06 07:39 | NUR ---
Change of shift report given to AM shift nurse Vijaya HALL. AM shift nurse Vijaya RN verbalized understanding of report, no further questions.
--- NOTE | 2022-05-06 07:41 | NUR ---
report received form zeeshan bradley
[2022-05-06] MEDS ORDERED: ACETAMINOPHEN 325 MG TAB PO PRN (08:20)
[2022-05-06] MEDS ORDERED: ONDANSETRON 4 MG/2 ML VIAL IVP PRN (08:20)
[2022-05-06] MEDS ORDERED: MORPHINE SULFATE 2 MG/ML SYR IVP PRN (08:20)
[2022-05-06] MEDS ORDERED: DOCUSATE SODIUM 100 MG GELCAP PO PRN (08:20)
[2022-05-06] MEDS ORDERED: MAG SULF 2000 MG/WATER PREMIX 50 ML IV PRN (08:20)
[2022-05-06] MEDS ORDERED: LORazepam 2 MG/ML VIAL IVP PRN (08:20)
[2022-05-06] MEDS ORDERED: ZOLPIDEM 10 MG TAB PO PRN (08:20)
[2022-05-06] MEDS ORDERED: POTASSIUM CHLORIDE 10 MEQ TABER PO PRN (08:20)
--- NOTE | 2022-05-06 08:43 | NUR ---
dr. casanova @ beside with verbal order for gastrografin small bowel follow through noted and carried out
[2022-05-06] MEDS: carvediloL 3.125 MG TAB PO SCH ×2 (09:00→22:59)
--- NOTE | 2022-05-06 09:20 | NUR ---
radiologic therapist @ beside for radiografin sb follow thru. stated needs 100 ml contrast to ngt and to hold suction x 6 hours. contrast given by rn and tolerated well. ngt flushing well and clamped @ this time. no n/v. pt aao x4. resp even and nonlabored.
--- NOTE | 2022-05-06 10:24 | NUR ---
PATIENT HAS BEEN SCREENED AND CATEGORIZED MODERATE NUTRITION RISK. PATIENT WILL BE SEEN WITHIN 3-5 DAYS OF ADMISSION. REVIEWED BY BI ACEVED[address]
--- NOTE | 2022-05-06 12:48 | NUR ---
aao x4. gastrografin small bowel follow through in progress. given ice chips per pt request. per dr. joceylne canales. vss. no n/v
--- NOTE | 2022-05-06 13:15 | NUR ---
contact info jody (daughter) [phone]
--- NOTE | 2022-05-06 15:09 | NUR ---
resting in [place]. resp even and nonlabored. no n/v. pending tele bed
--- NOTE | 2022-05-06 16:13 | NUR ---
called imaging re: small bowel follow thru. stated exam completed. awaiting rad report. ngt cont clamped. no n/v
--- NOTE | 2022-05-06 16:33 | NUR ---
bs 112
--- NOTE | 2022-05-06 18:16 | NUR ---
bedside report given to emerald bradley. pt care endorsed. all questions answered. taken via gurney on monitor by emt and rn. all belongings taken. vss.
--- NOTE | 2022-05-06 18:20 | NUR ---
RECEIVED REPORT FROM ER NURSE. PT A/O X4. WELSH SPEAKING. NO SOB NOTED. ON 3L NC. DENIES PAIN. R NARE NG TUBE NOTED. NPO. LHAND #20 SL. R UPPER CHEST PERMACATH. MIDLINE ABDOMINAL SCAR NOTED. DENIES N/V/D. PLAN FOR HD TODAY. NEEDS ALL MET AT THIS TIME. WILL ENDORSE TO NIGHTSHIFT NURSE.
--- NOTE | 2022-05-06 18:42 | NUR ---
CONTACTED LILIBETH MCBRIDE FOR HD TODAY
--- NOTE | 2022-05-06 19:22 | NUR ---
BEDSIDE REPORT GIVEN TO NIGHTSHIFT NURSESELENA FOR CONTINUITY OF CARE.
[2022-05-06 19:30] VITALS: BP 101/67
--- NOTE | 2022-05-06 19:30 | NUR ---
RECEIVED REPORT FROM DAY SHIFT NURSE ARCELIA FOR CONTINUITY OF CARE. PATIENT IS A&O X4, YAKUT SPEAKING. PATIENT IS ON NC 5L; BREATHING IS NORMAL WITH SYMMETRICAL RISE AND FALL OF CHEST. PATIENT'S IV IS A 20G LEFT HAND; NO FLUIDS RUNNING AT THIS TIME (SALINE LOCKED). PATIENT IS SITTING HIGH-FOWLERS IN BED. BED IS IN LOWEST POSITION, WHEELS LOCKED, CALL LIGHT IN PLACE. WILL CONTINUE TO OBSERVE PATIENT.
[2022-05-06] MEDS ORDERED: ALBUMIN HUMAN 25% 100 ML IV ONE (20:08)
[2022-05-06] MEDS: metroNIDAZOLE 500 MG/NS PREMIX 100 ML IV SCH (23:02)
[2022-05-07] VITALS: BP 104/74
--- NOTE | 2022-05-07 | NUR ---
PATIENT HAD HEMO DIALYSIS. DIALYSIS FINISHED AT 2256; DIALYSIS NURSE CURTIS INFORMED ME THAT THERE WAS 900 ML OUT. ADMINISTERED 2100 MEDICATIONS TO PATIENT AFTER DIALYSIS WAS COMPLETED. 2100 COREG WAS HELD DUE TO DECREASED BP. 2100 METRONIDAZOLE IVPB WAS STARTED SUCCESSFULLY WITHOUT ANY ISSUES. PATIENT WAS COOPERATIVE DURING ADMISSION; TRANSLATION WAS DONE BY NURSE SHEPPARD. PATIENT'S SATURATION WAS AT 100%; DECREASED NC TO 4L. BREATHING IS NORMAL WITH SYMMETRICAL RISE AND FALL OF CHEST. WILL CONTINUE TO OBSERVE PATIENT.
--- NOTE | 2022-05-07 01:00 | NUR ---
MESSAGED DR. GALLEGOS ASKING IF PATIENT SHOULD BE HOOKED UP TO INTERMITTENT SUCTION ON NG-TUBE. INFORMING HIM THAT THERE WAS NO ORDER PUT IN FOR THE SUCTION. PENDING DR. GALLEGOS RESPONSE.
[2022-05-07 04:00] VITALS: BP 99/72
[2022-05-07] MEDS: metroNIDAZOLE 500 MG/NS PREMIX 100 ML IV SCH ×3 (04:28→20:37)
--- NOTE | 2022-05-07 05:00 | NUR ---
0500 MEDICATION ADMINISTERED TO PATIENT. PATIENT TOLERATED WELL. PATIENT HAD NO BM AND NO VOID. PATIENT WAS GIVEN [facility] GOWN. PATIENT IS AWAKE WATCHING TV. BREATHING IS NORMAL WITH SYMMETRICAL RISE AND FALL OF CHEST. WILL CONTINUE TO OBSERVE PATIENT.
[2022-05-07 06:46] LABS: BASOPHILS % (AUTO) 0.7 % (0.0-2.0); EOSINOPHILS # (AUTO) 0.3 K/uL (0-0.4); EOSINOPHILS % (AUTO) 6.9 % (0.0-4.0); HEMATOCRIT 32.9 % (36-52); HEMOGLOBIN 10.5 g/dL (12.0-18.0); LYMPHOCYTES # (AUTO) 0.5 K/uL (2.0-11.5); LYMPHOCYTES % (AUTO) 12.8 % (20.5-51.1); MEAN CORPUSCULAR HEMOGLOBIN 30 pg (27-31); MEAN CORPUSCULAR HGB CONC 32 g/dL (33-37); MEAN CORPUSCULAR VOLUME 94.5 fL (80-94); MONOCYTES # (AUTO) 0.5 K/uL (0.8-1.0); MONOCYTES % (AUTO) 12.2 % (1.7-9.3); NEUTROPHILS # (AUTO) 2.6 K/uL (1.8-7.7); NEUTROPHILS % (AUTO) 67.4 % (42.2-75.2); PLATELET COUNT (AUTO) 67 K/uL (140-450); RED BLOOD CELL COUNT(AUTO) 3.48 MIL/uL (4.20-6.10); WHITE BLOOD COUNT (AUTO) 3.8 K/uL (4.8-10.8)
--- NOTE | 2022-05-07 07:15 | NUR ---
ENDORSED TO DAY SHIFT NURSE NILSA FOR CONTINUITY OF CARE. PATIENT IS STABLE.
[2022-05-07 07:18] LABS: ANION GAP 13.7 (8-16); CARBON DIOXIDE 29.4 mmol/L (21-32); CHLORIDE 106 mmol/L (98-107); CREATININE 2.4 mg/dL (0.6-1.3); GLUCOSE 87 mg/dL (74-106); POTASSIUM 5.1 mmol/L (3.5-5.1); SODIUM SERUM 144 mmol/L (136-145); UREA NITROGEN, BLOOD 34 mg/dL (7-18)
--- NOTE | 2022-05-07 07:37 | NUR ---
GOT REPORT FROM THE NIGHT NURSE PT IS AWAKE NO SOB.[id number]
[2022-05-07 08:00] VITALS: BP 91/62
[2022-05-07] MEDS: carvediloL 3.125 MG TAB PO SCH ×2 (09:11→20:38)
[2022-05-07 12:00] VITALS: BP 91/62
[2022-05-07 16:00] VITALS: BP 179/80
--- NOTE | 2022-05-07 19:42 | NUR ---
PT IS FULL CODE DR SANDEEP YUEN VERIFIED. [id number]
[2022-05-07 20:00] VITALS: BP 107/67
--- NOTE | 2022-05-07 20:37 | NUR ---
ADMINISTERED SCHEDULED DUE MEDICATIONS.
[2022-05-08] VITALS: BP 105/68
[2022-05-08 04:00] VITALS: BP 99/68
[2022-05-08] MEDS: metroNIDAZOLE 500 MG/NS PREMIX 100 ML IV SCH ×3 (05:29→20:32)
[2022-05-08 07:22] LABS: ANION GAP 13.1 (8-16); CARBON DIOXIDE 26.7 mmol/L (21-32); CHLORIDE 103 mmol/L (98-107); CREATININE 3.3 mg/dL (0.6-1.3); GLUCOSE 84 mg/dL (74-106); POTASSIUM 4.8 mmol/L (3.5-5.1); SODIUM SERUM 138 mmol/L (136-145); UREA NITROGEN, BLOOD 48 mg/dL (7-18)
[2022-05-08 07:26] LABS: BASOPHILS % (AUTO) 0.6 % (0.0-2.0); EOSINOPHILS # (AUTO) 0.2 K/uL (0-0.4); EOSINOPHILS % (AUTO) 4.2 % (0.0-4.0); HEMATOCRIT 32.3 % (36-52); HEMOGLOBIN 10.6 g/dL (12.0-18.0); LYMPHOCYTES # (AUTO) 0.6 K/uL (2.0-11.5); LYMPHOCYTES % (AUTO) 11.5 % (20.5-51.1); MEAN CORPUSCULAR HEMOGLOBIN 31 pg (27-31); MEAN CORPUSCULAR HGB CONC 33 g/dL (33-37); MEAN CORPUSCULAR VOLUME 92.8 fL (80-94); MONOCYTES # (AUTO) 0.7 K/uL (0.8-1.0); MONOCYTES % (AUTO) 14.6 % (1.7-9.3); NEUTROPHILS # (AUTO) 3.3 K/uL (1.8-7.7); NEUTROPHILS % (AUTO) 69.1 % (42.2-75.2); PLATELET COUNT (AUTO) 90 K/uL (140-450); RED BLOOD CELL COUNT(AUTO) 3.48 MIL/uL (4.20-6.10); RED CELL DISTRIBUTION WIDTH 16.4 % (11.6-13.7); WHITE BLOOD COUNT (AUTO) 4.8 K/uL (4.8-10.8)
--- NOTE | 2022-05-08 07:31 | NUR ---
GAVE REPORT TO DAY SHIFT NURSE TEAGAN FOR CONTINUITY OF CARE. PATIENT STABLE.
[2022-05-08 08:00] VITALS: BP 95/70
[2022-05-08] MEDS: carvediloL 3.125 MG TAB PO SCH ×2 (09:00→20:42)
[2022-05-08] MEDS ORDERED: ALBUMIN HUMAN 25% 100 ML IV ONE (10:17)
[2022-05-08 12:00] VITALS: BP 102/70
[2022-05-08 16:00] VITALS: BP 106/70
--- NOTE | 2022-05-08 19:59 | NUR ---
PATIENT IN BED SLEEPING IN SEMI FOWLERS POSITION WITH O2 AT 2L NC. RESPIRATION EVEN UNLABORED. CALL LIGHT WITHIN REACH. SAFETY MEASURES IN PLACE.
[2022-05-08 20:00] VITALS: BP 95/65
--- NOTE | 2022-05-08 20:27 | NUR ---
PATIENT BP-95/65 P-88. PLACE A CALL TO DR. MATT WITH ORDER TO HOLD BP MEDS AND MONITOR PATIENT. ORDER NOTED , CARRIED OUT.
--- NOTE | 2022-05-08 20:32 | NUR ---
SCHEDULED MEDICATION DUE GIVEN.
[2022-05-09] VITALS: BP 112/73
[2022-05-09 04:00] VITALS: BP 143/74
[2022-05-09] MEDS: metroNIDAZOLE 500 MG/NS PREMIX 100 ML IV SCH (04:35)
--- NOTE | 2022-05-09 05:09 | NUR ---
PATIENT IV INFILTRATED. STARTED A NEW IV LINE ON THE RIGHT HAND WITH GOOD BACK FLOW OF BLOOD. TOLERATED WELL.
--- NOTE | 2022-05-09 07:14 | NUR ---
GAVE REPORT TO DAY SHIFT NURSE FOR CONTINUITY OF CARE. PATIENT STABLE.
[2022-05-09 07:58] LABS: BASOPHILS % (AUTO) 0.8 % (0.0-2.0); EOSINOPHILS # (AUTO) 0.2 K/uL (0-0.4); EOSINOPHILS % (AUTO) 4.8 % (0.0-4.0); HEMATOCRIT 32.3 % (36-52); HEMOGLOBIN 10.5 g/dL (12.0-18.0); LYMPHOCYTES # (AUTO) 0.5 K/uL (2.0-11.5); LYMPHOCYTES % (AUTO) 10.8 % (20.5-51.1); MEAN CORPUSCULAR HEMOGLOBIN 30 pg (27-31); MEAN CORPUSCULAR HGB CONC 33 g/dL (33-37); MEAN CORPUSCULAR VOLUME 93.2 fL (80-94); MONOCYTES # (AUTO) 0.5 K/uL (0.8-1.0); MONOCYTES % (AUTO) 12.2 % (1.7-9.3); NEUTROPHILS % (AUTO) 71.4 % (42.2-75.2); PLATELET COUNT (AUTO) 80 K/uL (140-450); RED BLOOD CELL COUNT(AUTO) 3.47 MIL/uL (4.20-6.10); RED CELL DISTRIBUTION WIDTH 15.9 % (11.6-13.7); WHITE BLOOD COUNT (AUTO) 4.2 K/uL (4.8-10.8)
[2022-05-09 08:00] VITALS: BP 110/65
[2022-05-09 08:04] LABS: ANION GAP 17.1 (8-16); CARBON DIOXIDE 25.3 mmol/L (21-32); CHLORIDE 103 mmol/L (98-107); CREATININE 2.7 mg/dL (0.6-1.3); GLUCOSE 90 mg/dL (74-106); POTASSIUM 4.4 mmol/L (3.5-5.1); SODIUM SERUM 141 mmol/L (136-145); UREA NITROGEN, BLOOD 36 mg/dL (7-18)
--- NOTE | 2022-05-09 08:47 | NUR ---
DAUGHTER SAYS SHE WILL CONTINUE TO USE PREFERRED PHARMACY ON CHART AT THIS TIME, [facility] [place] [facility] AND THAT SHE NEEDS MORE SPIRONOLACTONE IF THE PATIENT IS TO CONTINUE TAKING THIS MEDICATION ON DISCHARGE.
[2022-05-09] MEDS: carvediloL 3.125 MG TAB PO SCH (09:00)
[2022-05-09] MEDS ORDERED: ACET-1182 PO (09:01)
[2022-05-09] MEDS ORDERED: ALBUMIN HUMAN 25% 100 ML IV ONE (16:10)
== END 2022-05-09 10:50 | disposition home or self-care (01) | DRG 393 ==
LOC: MED 21:32 → MTU 05-06 06:05
PROVIDERS: ADMIT Internal Medicine; ATTEND Internal Medicine
PROC: 5A1D70Z Performance of Urinary Filtration, Intermittent, Less than 6 Hours Per Day (ICD-10-PCS; principal; 2022-05-06)
PROC: 0D9670Z Drainage of Stomach with Drainage Device, Via Natural or Artificial Opening (ICD-10-PCS; 2022-05-06)
PROC: 5A1D70Z Performance of Urinary Filtration, Intermittent, Less than 6 Hours Per Day (ICD-10-PCS; 2022-05-08)
DX: K43.2 Incisional hernia without obstruction or gangrene (principal); I50.23 Acute on chronic systolic (congestive) heart failure; N18.6 End stage renal disease; I13.2 Hypertensive heart and chronic kidney disease with heart failure and with stage 5 chronic kidney disease, or end stage renal disease; N39.0 Urinary tract infection, site not specified; I42.9 Cardiomyopathy, unspecified; I48.91 Unspecified atrial fibrillation; D64.9 Anemia, unspecified; D69.6 Thrombocytopenia, unspecified; Z20.822 Contact with and (suspected) exposure to COVID-19; Z79.01 Long term (current) use of anticoagulants; Z95.810 Presence of automatic (implantable) cardiac defibrillator; Z90.49 Acquired absence of other specified parts of digestive tract
CPT/HCPCS: 36415; 71045; 74021; 74250; 80048; 80053; 81001; 82948; 83605; 83690; 83735; 85025; 87081; 87086; 93005; 96365; 96375; 96376; 99285; J0696; J1644; J2270; J2405; J3490; J7060; P9046; Q0092

== ENCOUNTER 2022-07-07 01:05 | Emergency (ER) | payer OTHER, MEDICAID ==
[~2022-07-07] VITALS: Ht 170.2 cm; Wt 113.4 kg
[~2022-07-07 01:05] MED LIST changes: +ACET-1182 PO; +DOCU-299 PO; +MIRABULK PO
[2022-07-07 01:14] VITALS: BP 109/68
--- NOTE | 2022-07-07 01:24 | NUR ---
PT TO BED
--- NOTE | 2022-07-07 01:27 | NUR ---
Patient BIB by family from home. C/O difficulty breathing x 3 days. Patient reported, had difficulty breathing for 2-3 days, Hx ESRD (Dialysis Tue//Tue), HTN, Pacemaker
--- NOTE | 2022-07-07 01:33 | NUR ---
COVID-19 swab collected and sent to lab.
[2022-07-07 01:38] LABS: BASOPHILS # (AUTO) 0.1 K/uL (0.00-0.22); EOSINOPHILS # (AUTO) 0.1 K/uL (0-0.4); EOSINOPHILS % (AUTO) 2.5 % (0.0-4.0); HEMATOCRIT 38.6 % (36-52); HEMOGLOBIN 12.8 g/dL (12.0-18.0); LYMPHOCYTES # (AUTO) 0.8 K/uL (2.0-11.5); LYMPHOCYTES % (AUTO) 14.7 % (20.5-51.1); MEAN CORPUSCULAR HEMOGLOBIN 31 pg (27-31); MEAN CORPUSCULAR HGB CONC 33 g/dL (33-37); MEAN CORPUSCULAR VOLUME 92.1 fL (80-94); MONOCYTES # (AUTO) 0.6 K/uL (0.8-1.0); MONOCYTES % (AUTO) 10.2 % (1.7-9.3); NEUTROPHILS # (AUTO) 3.9 K/uL (1.8-7.7); NEUTROPHILS % (AUTO) 71.6 % (42.2-75.2); PLATELET COUNT (AUTO) 100 K/uL (140-450); RED BLOOD CELL COUNT(AUTO) 4.19 MIL/uL (4.20-6.10); RED CELL DISTRIBUTION WIDTH 16.3 % (11.6-13.7); WHITE BLOOD COUNT (AUTO) 5.4 K/uL (4.8-10.8)
--- NOTE | 2022-07-07 01:45 | NUR ---
X-Ray at bedside.
[2022-07-07 01:56] LABS: ALBUMIN 3.9 g/dL (3.4-5.0); ANION GAP 14.3 (8-16); ASPARTATE AMINOTRANSFERASE 23 U/L (15-37); CARBON DIOXIDE 28.3 mmol/L (21-32); CHLORIDE 102 mmol/L (98-107); CREATININE 2.8 mg/dL (0.6-1.3); GLUCOSE 103 mg/dL (74-106); POTASSIUM 4.6 mmol/L (3.5-5.1); SODIUM SERUM 140 mmol/L (136-145); TOTAL BILIRUBIN 1.7 mg/dL (0.0-1.0); UREA NITROGEN, BLOOD 37 mg/dL (7-18)
[2022-07-07] MEDS ORDERED: TAMS0.4C96 PO (01:58)
[2022-07-07] MEDS ORDERED: SPIR50TA PO (01:58)
--- NOTE | 2022-07-07 01:59 | NUR ---
Med-rec reviewed.
[2022-07-07] MEDS ORDERED: FUROSEMIDE 100 MG/10 ML VIAL IVP ONE (02:30)
--- NOTE | 2022-07-07 02:35 | NUR ---
Dr. Posadas examining patient.
--- NOTE | 2022-07-07 04:54 | NUR ---
Patient to be transferred to [facility]. Is being transferred due to Insurance. Receiving facility has accepting physician and available space. ER physician has signed transfer form. Patient or responsible republican has agreed to transfer and signed form. Patient belongings inventoried and will be sent with patient. Copy of nursing notes, lab reports, EKG, Physicians Orders and X-rays to be sent with patient. Report called to ISABEL Corea at receiving facility. S ambulance service has been called for transfer. ETA is 90 minutes.
[2022-07-07 04:56] VITALS: BP 100/68
--- NOTE | 2022-07-07 05:14 | NUR ---
urine output 150 ml
--- NOTE | 2022-07-07 06:00 | NUR ---
[facility] at bedside.
== END 2022-07-07 04:56 | disposition short-term general hospital (02) ==
LOC: MED 01:05
DX: E11.22 Type 2 diabetes mellitus with diabetic chronic kidney disease (principal); I13.0 Hypertensive heart and chronic kidney disease with heart failure and stage 1 through stage 4 chronic kidney disease, or unspecified chronic kidney disease; N18.9 Chronic kidney disease, unspecified; I50.9 Heart failure, unspecified; J96.01 Acute respiratory failure with hypoxia; E87.70 Fluid overload, unspecified; Z20.822 Contact with and (suspected) exposure to COVID-19; I48.91 Unspecified atrial fibrillation; E66.9 Obesity, unspecified; Z95.0 Presence of cardiac pacemaker; Z79.899 Other long term (current) drug therapy
CPT/HCPCS: 36415; 71045; 80053; 82948; 83605; 83880; 84484; 85025; 87040; 87426; 93005; 96374; 99291; J1940; Q0092